=== PATIENT | male | born 1975 | race Caucasian/White ===

== ENCOUNTER → 2020-06-07 | Outpatient (CLI) | payer BC, OTHER ==
--- NOTE | 2020-06-08 10:03 | CT ---
EXAM: Head CLINICAL HISTORY: UNSPEC. INJURY OF HEAD COMPARISON STUDY: None TECHNICAL: Noncontrast CT images were acquired through the brain. FINDINGS: A nondisplaced posterior skull fracture extends from nearly the vertex through the occipital bone to the right of midline. A fracture line that extends through the right temporal bones, through the jugular foramen and osseous structures surrounding the internal auditory canal. The fracture line extends through the lateral aspect cochlear complex and medial aspect of the semicircular canals. The fracture extends through the lateral most aspect of the internal auditory canal. The auditory ossicles do not appear displaced.There is fluid within the inferior mastoid air cells which in the setting of trauma could be blood. There is no sign of acute intracranial hemorrhage. There is no visible subdural or epidural hematoma. There is no evidence of significant subarachnoid hemorrhage. There is no mass or mass effect. No acute territorial infarction is seen. The ventricles are not dilated. IMPRESSION: 1. Nondisplaced posterior skull fracture extends through the right temporal bones as discussed. 2. No evidence of acute intracranial hemorrhage. Results will be relayed to referring clinician. This exam was performed according to our departmental dose-optimization program, which includes automated exposure control, adjustment of the mA and/or kV according to patient size and/or use of iterative reconstruction technique. Electronically signed by: Leon Marquez MD 06/08/2020 10:01 AM CDT
== END | disposition home or self-care (01) ==
LOC: CT 14:05
DX: S09.90XA Unspecified injury of head, initial encounter (principal); W18.30XA Fall on same level, unspecified, initial encounter